=== PATIENT | male | born 1950 | race Two or more races ===

== ENCOUNTER 2017-06-06 20:14 | Emergency (ER) | payer MEDICARE, MEDICAID ==
[~2017-06-06] VITALS: Ht 180.3 cm; Wt 81.6 kg
--- NOTE | 2017-06-06 20:25 | NUR ---
pt bb son from home with c/o left foot pain, swelling, redness x 2 weeks. pt is aaox4. pt states pain 5/10 with stinging sensations. resp even and unlabored. no s/s of acute distress noted. vss. pt placed in gown and placed on monitor and pox. pt comfort and safety in place. awaiting md for eval.
[2017-06-06] MEDS ORDERED: diphenhydrAMINE HCL 25 MG CAPSULE PO ONE (22:30)
[2017-06-06] MEDS ORDERED: FLUCONAZOLE (100 MG) 100 MG TABLET PO ONE (22:30)
[2017-06-06] MEDS ORDERED: CEFTRIAXONE 1 G VIAL IM ONE (22:30)
[2017-06-06 22:33] LABS: BASOPHILS % (AUTO) 0.4 % (0.0-2.0); EOSINOPHILS # (AUTO) 0.3 /CMM (0.0-0.7); EOSINOPHILS % (AUTO) 2.5 % (0.0-6.0); HEMATOCRIT 43 % (39-51); HEMOGLOBIN 15.1 g/dL (13.5-17.5); LYMPHOCYTES # (AUTO) 2.4 /CMM (0.8-4.8); LYMPHOCYTES % (AUTO) 22.3 % (20.0-44.0); MEAN CORPUSCULAR HEMOGLOBIN 34 PG (26.0-33.0); MEAN CORPUSCULAR HGB CONC 35 g/dl (31.0-36.0); MEAN CORPUSCULAR VOLUME 97 fL (80-96); MONOCYTES # (AUTO) 0.7 /CMM (0.1-1.30); NEUTROPHILS # (AUTO) 7.2 /CMM (1.8-8.9); NEUTROPHILS % (AUTO) 67.8 % (43.0-81.0); PLATELET COUNT (AUTO) 274 /CMM (150-450); RDW COEFFICIENT OF VARIATION 12.4 (11.5-15.0); RED BLOOD CELL COUNT(AUTO) 4.49 MIL/uL (4.5-6.0); WHITE BLOOD COUNT (AUTO) 10.6 K/uL (4.3-11.0)
[2017-06-06 22:46] LABS: CALCIUM, SERUM 9.2 mg/dL (8.5-10.1); POTASSIUM 3.9 mmol/L (3.5-5.1)
[2017-06-06] MEDS ORDERED: CEFTRIAXONE 1 G VIAL ONE (22:51)
[2017-06-06] MEDS ORDERED: diphenhydrAMINE HCL 25 MG CAPSULE ONE (22:51)
[2017-06-06] MEDS ORDERED: FLUCONAZOLE (100 MG) 100 MG TABLET ONE (22:51)
[2017-06-06] MEDS ORDERED: LIDOCAINE 1% INJ 50 ML MDV IJ ONE (22:52)
[2017-06-06 22:53] LABS: BILIRUBIN,DIRECT 0.1 mg/dL (0.0-0.2); BILIRUBIN,TOTAL 0.4 mg/dL (0.2-1.0); TOTAL PROTEIN, SERUM 7.8 g/dL (6.4-8.2)
--- NOTE | 2017-06-07 00:43 | NUR ---
Patient discharged to home in stable condition. Written and verbal after care instructions along with RX given. Patient verbalizes understanding of instruction. VSS upon discharge. Pt ambulated with steady gait on crutches out of ER accompanied by family member.
[2017-06-07 00:44] VITALS: BP 136/86
== END 2017-06-07 00:45 | disposition home or self-care (01) ==
LOC: ER 20:15
DX: S92.335A Nondisplaced fracture of third metatarsal bone, left foot, initial encounter for closed fracture (principal); R21 Rash and other nonspecific skin eruption; X58.XXXA Exposure to other specified factors, initial encounter; Y93.89 Activity, other specified; Y92.89 Other specified places as the place of occurrence of the external cause; Y99.8 Other external cause status
CPT/HCPCS: 29515; 36415; 73630; 80048; 80076; 84550; 85025; 96372; 99285; A4606; J0696; J3490; Q0163; Z7610